=== PATIENT | male | born 1955 | race Caucasian/White ===

== ENCOUNTER 2020-03-23 05:29 | Day surgery (SDC) | payer OTHER ==
--- NOTE | 2020-03-18 13:04 | RADIOLOGY REPORT (SQ) ---
EXAM DESCRIPTION: CHEST PA/LATERAL IMAGES COMPLETED DATE/TIME: 03/18/2020 12:56 pm REASON FOR STUDY: PRE OP COMPARISON: None. EXAM PARAMETERS: NUMBER OF VIEWS: two views TECHNIQUE: Digital Frontal and Lateral radiographic views of the chest acquired. RADIATION DOSE: NA LIMITATIONS: none FINDINGS: LUNGS AND PLEURA: No opacities, masses or pneumothorax. No pleural effusion. MEDIASTINUM AND HILAR STRUCTURES: No masses or contour abnormalities. HEART AND VASCULAR STRUCTURES: Heart normal size. No evidence for failure. BONES: No acute findings. HARDWARE: None in the chest. OTHER: No other significant finding. IMPRESSION: NO SIGNIFICANT RADIOGRAPHIC FINDING IN THE CHEST. TECHNICAL DOCUMENTATION: JOB ID: [id number] 2010 [employer]- All Rights Reserved Reading location - IP/workstation name: [email or web address]
[2020-03-18 13:54] LABS: HEMATOCRIT 36.3 % (37.9-51.0); HEMOGLOBIN 12.7 g/dL (13.5-17.0); MEAN CORPUSCULAR HEMOGLOBIN 33.6 pg (27.0-33.4); MEAN CORPUSCULAR VOLUME 96 fl (80-97); PLATELET COUNT 197 10^3/uL (150-450); RED BLOOD COUNT 3.78 10^6/uL (4.35-5.55); RED CELL DISTRIBUTION WIDTH 12.4 % (11.5-14.0); WHITE BLOOD COUNT 8.4 10^3/uL (4.0-10.5)
[2020-03-18 14:01] LABS: APPEARANCE,URINE CLEAR; BILIRUBIN,URINE NEGATIVE (NEGATIVE); COLOR,URINE YELLOW; GLUCOSE, URINE NEGATIVE (NEGATIVE); KETONES,URINE NEGATIVE (NEGATIVE); LEUKOCYTE ESTERASE,URINE NEGATIVE (NEGATIVE); NITRITE,URINE NEGATIVE (NEGATIVE); PROTEIN,URINE NEGATIVE (NEGATIVE); URINE SPECIFIC GRAVITY 1.017; UROBILINOGEN,URINE NEGATIVE mg/dL (<2.0)
[2020-03-18 14:20] LABS: ANION GAP 7 (5-19); BLOOD UREA NITROGEN 17 mg/dL (7-20); CALCIUM 9.6 mg/dL (8.4-10.2); CARBON DIOXIDE 25 mmol/L (22-30); CHLORIDE 103 mmol/L (98-107); GLUCOSE 124 mg/dL (75-110)
--- NOTE | 2020-03-18 23:14 | EKG REPORT ---
SEVERITY:- NORMAL ECG - SINUS RHYTHM : Confirmed by: Minal Childress MD 18-Mar-2020 23:13:46
[~2020-03-23 05:29] MED LIST: CEFAZOLIN 2 GM/D5W RTU 2 GM/50 ML RTUPB IV ONE; CEFAZOLIN 2 GM/D5W RTU 2 GM/50 ML RTUPB IV PRN; LACTATED RINGERS 1000 ML IV PRN
[2020-03-23] MEDS ORDERED: PROPOFOL INJ 200 MG/20 ML VIAL IV ONE (07:11)
[2020-03-23] MEDS ORDERED: LIDOCAINE 2% INJ-PF (20 MG/ML) 10 ML AMPUL ONE (07:11)
[2020-03-23] MEDS ORDERED: FENTANYL CITRATE INJ/PF 100 MCG/2 ML AMPUL ONE (07:11)
[2020-03-23] MEDS ORDERED: MIDAZOLAM 2 MG/2 ML INJ ONE (07:11)
[2020-03-23] MEDS ORDERED: DEXAMETHASONE SOD PHOSPHATE INJ 4 MG/1 ML VIAL ONE (07:11)
[2020-03-23] MEDS ORDERED: ONDANSETRON HCL INJ/PF 4 MG/2 ML SDV ONE (07:11)
[2020-03-23] MEDS ORDERED: HYDROMORPHONE HCL INJ/PF 2 MG/ML AMPULE ONE (07:11)
[2020-03-23] MEDS ORDERED: BUPIVACAINE INJ/PF LIPOSOME/PF 266 MG/20 ML SDV ONE (07:28)
[2020-03-23] MEDS ORDERED: BACITRACIN INJ 50,000 UNIT VIAL ONE (07:28)
[2020-03-23] MEDS ORDERED: MINERAL OIL (STERILE) 10 ML VIAL ONE (07:28)
[2020-03-23] MEDS ORDERED: MEPERIDINE HCL/PF INJ 25 MG/1 ML DISP.SYRIN IV PRN (09:09)
[2020-03-23] MEDS ORDERED: DIPHENHYDRAMINE HCL 50 MG/ML VIAL IV PRN (09:09)
[2020-03-23] MEDS ORDERED: OXYCODONE-ACETAMINOPHEN 5-325 MG TABLET PO PRN ×2 (09:09)
[2020-03-23] MEDS ORDERED: MORPHINE SULFATE 10 MG/ML INJ IV PRN (09:09)
[2020-03-23] MEDS ORDERED: PROMETHAZINE HCL INJ 25 MG/1 ML VIAL IV PRN ×2 (09:09)
[2020-03-23] MEDS ORDERED: FENTANYL CITRATE INJ/PF 100 MCG/2 ML AMPUL IV PRN ×3 (09:09)
[2020-03-23] MEDS ORDERED: BUPIVACAINE HCL 0.5 % INJ/PF 30 ML SDV ONE (09:24)
[2020-03-23] MEDS ORDERED: GLYCOPYRROLATE 1 MG/5 ML VIAL ONE (09:51)
[2020-03-23] MEDS ORDERED: NEOSTIGMINE METHYLSULFATE 10 MG/10 ML VIAL ONE (09:51)
--- NOTE | 2020-03-23 10:11 | Operative Report ---
Operative Report DATE OF SURGERY: 03/23/20 PREOPERATIVE DIAGNOSIS: L4-5 severe stenosis. L4-5 herniated nucleus pulposus right and left side. L4-5 radiculitis. L4-5 severe stenosis with neurogenic claudication and back pain POSTOPERATIVE DIAGNOSIS: L4-5 severe stenosis. L4-5 herniated nucleus pulposus right and left side. L4-5 radiculitis. L4-5 severe stenosis with neurogenic claudication and back pain. S/P L4 partial laminectomy and L4-5 bilateral microdiscectomy OPERATION: For partial laminectomy and L4-5 bilateral microdiscectomy SURGEON: DEBBY GRIFFIN 1ST MAR[employer]AGE [employer] FAMILY THERAPIST: PATRICK MENDEZ ANESTHESIA: GA COMPLICATIONS: None PROCEDURE: Patient is brought into the room and placed under general anesthesia. After appropriate surgical timeout the patient was placed in the prone position on the radiolucent table with Alexys frame attachment. Patient received 2 g of Ancef within 1 hour of cut time. Under C arm fluoroscopy in the lateral position the skin is marked using a metal marker. After marking the midline and after completion of prepping and draping midline incision is carried out using sharp dissection. Electrocautery was used to maintain hemostasis. Dissection is carried out onto the lamina of L4-5 and Denis was placed at the posterior interspace of L4-5 upon verification of the posterior interspace position using lateral C-arm fluoroscopy the spinous process of L4 resected. The microscope was brought in and under the microscope and through the assistance of evi Corona physician assistant case manager to the microscope partial laminectomies performed using the bur and Kerrisons and ligamentum flavum was resected. The dura is retracted medially and the right and the left lateral recesses decompressed and a partial facetectomies performed. The noted disc protrusion is then resected under the microscope many small and large degenerative pieces of disc were resected. Then the dura is found to rest more ventrally and no pressure is noted on the exiting nerve root. A Valsalva maneuver was performed by the anesthesia team. Noting no cerebrospinal fluid leakage or epidural bleeders. The wound is irrigated with a liter of bacitracin irrigation and the fascia is then reapproximated with 0 Vicryl the subcu with 2- 0 Vicryl. The deep and superficial soft tissues were infiltrated with 1.3% Exparel 20 cc mixed with 20 cc of Marcaine plain. The subcu was reapproximated with 3-0 Monocryl as a running stitch with the edges tied outside of the skin and the wound is dressed with benzoin Steri-Strips 4 x 4 and tape. Patient was then brought to the supine position extubated brought to recovery room. Patient tolerated post procedure well. Please note this procedure could not have been done without the assistance of evi Corona physician assistant case manager working under the microscope carry out the discectomy and retracting the dura.
[2020-03-23] MEDS ORDERED: METHOCARBAMOL INJ/PF 1000 MG/10 ML SDV ONE (10:17)
[2020-03-23] MEDS ORDERED: OXYCODONE-ACETAMINOPHEN 5-325 MG TABLET ONE (11:01)
--- NOTE | 2020-03-23 11:45 | RADIOLOGY REPORT (SQ) ---
EXAM DESCRIPTION: SPINE SINGLE VIEW; NO CHG FLUORO IMAGES COMPLETED DATE/TIME: 03/23/2020 10:29 am REASON FOR STUDY: L4-5 LAMINECTOMY ASSISTED WITH FLUORO IN OR M48.062 SPINAL STENOSIS, LUMBAR REGIO N WITH NEUROGENIC CANDIDO M48.061 SPINAL STENOSIS, LUMBAR REGION WITHOUT NEUROGENIC CL M54.16 RADICUL OPATHY, LUMBAR REGION COMPARISON: None. FLUOROSCOPY TIME: 0.1 minutes 1 images saved to PACS. TECHNIQUE: Intra-operative images acquired during surgical procedure to evaluate progress. NUMBER OF IMAGES: 1 LIMITATIONS: None. FINDINGS: A single intraoperative fluoroscopic spot image was obtained and is submitted for administ rative purposes only. Please refer to the operative report for full details regarding this procedure . IMPRESSION: IMAGE(S) OBTAINED DURING PROCEDURE. COMMENT: Quality ID [id number]: Final reports for procedures using fluoroscopy that document radiation exp osure indices, or exposure time and number of fluorographic images (if radiation exposure indices are not available) Please consult full operative report of the attending physician for description of the procedure. TECHNICAL DOCUMENTATION: JOB ID: [id number] 2010 [employer]- All Rights Reserved Reading location - IP/workstation name: [email or web address]
--- NOTE | 2020-03-23 11:45 | RADIOLOGY REPORT (SQ) ---
EXAM DESCRIPTION: SPINE SINGLE VIEW; NO CHG FLUORO IMAGES COMPLETED DATE/TIME: 03/23/2020 10:29 am REASON FOR STUDY: L4-5 LAMINECTOMY ASSISTED WITH FLUORO IN OR M48.062 SPINAL STENOSIS, LUMBAR REGIO N WITH NEUROGENIC CANDIDO M48.061 SPINAL STENOSIS, LUMBAR REGION WITHOUT NEUROGENIC CL M54.16 RADICUL OPATHY, LUMBAR REGION COMPARISON: None. FLUOROSCOPY TIME: 0.1 minutes 1 images saved to PACS. TECHNIQUE: Intra-operative images acquired during surgical procedure to evaluate progress. NUMBER OF IMAGES: 1 LIMITATIONS: None. FINDINGS: A single intraoperative fluoroscopic spot image was obtained and is submitted for administ rative purposes only. Please refer to the operative report for full details regarding this procedure . IMPRESSION: IMAGE(S) OBTAINED DURING PROCEDURE. COMMENT: Quality ID [id number]: Final reports for procedures using fluoroscopy that document radiation exp osure indices, or exposure time and number of fluorographic images (if radiation exposure indices are not available) Please consult full operative report of the attending physician for description of the procedure. TECHNICAL DOCUMENTATION: JOB ID: [id number] 2010 [employer]- All Rights Reserved Reading location - IP/workstation name: [email or web address]
[2020-03-23 12:42] VITALS: BP 147/86
--- NOTE | 2020-03-29 13:34 | PDOC DISCHARGE SUMMARY ---
Impression - Admit/DC Date/PCP Admission Date/Primary Care Provider: 03/23/20 ZENAIDA BERMUDEZ MD Discharge Date: 03/23/20 - Discharge Diagnosis (1) S/P laminectomy Is this a current diagnosis for this admission?: Yes (2) S/P discectomy Is this a current diagnosis for this admission?: Yes (3) Lumbar radiculopathy Is this a current diagnosis for this admission?: Yes (4) Lumbar stenosis Is this a current diagnosis for this admission?: Yes - Assessment Summary: Pt had L4-5 bilateral microdiscectomy and L4 partial laminectomy carried out as planned without complications. Pt had an uneventful recovery in PACU and was taken to day surgery. Pt's pain was well controlled with oral pain medication and was able to tolerate PO intake. Pt able to void s/p removal of his introp catheter. Discharge instructions and spinal percautions were reviewed with pt. Pt. displayed understanding. All questions and concerns answered to pt satisfaction. Pt discharged to home in good condition as he had displayed ability to care for himself and requested to go home. Discharged POD #0 - Additional Information Resuscitation Status: Full Code Discharge Diet: As Tolerated Discharge Activity: Activity As Tolerated, No Lifting/Push/Pulling Referrals: DEBBY GRIFFIN MD [ASSOCIATE] - 04/06/20 (Follow up as scheduled) Home Medications: Alfuzosin HCl [Uroxatral] 10 mg PO DAILY 03/18/20 Atorvastatin Calcium [Lipitor 10 mg Tablet] 10 mg PO QHS 03/18/20 Celecoxib [Celebrex 200 mg Capsule] 200 mg PO Q12 03/18/20 Glucos Sul 2Kcl/MSM/Chond/C/Mn [Glucosamine Chondroitin Cap] 1 each PO DAILY 03/18/20 Metformin HCl [Glucophage 500 mg Tablet] 500 mg PO BID 03/18/20 Multivitamin [Multivitamins] 1 each PO DAILY 03/18/20 Pregabalin 75 mg PO BID 03/18/20 Sitagliptin Phosphate [Januvia 50 mg Tablet] 100 mg PO DAILY 03/18/20 Telmisartan 20 mg PO DAILY 03/18/20 Ubidecarenone [Coq10] 200 mg PO DAILY 03/18/20 History of Present Illiness History of Present Illness: RAMIRO DELAROSA is a 64 year old male Physical Exam Vital Signs: Temp Pulse Resp BP Pulse Ox 36.3 C 70 18 147/86 H 98 03/23/20 12:00 03/23/20 12:00 03/23/20 12:00 03/23/20 12:00 03/23/20 12:00 Results Laboratory Results: WBC 8.4 10^3/uL (4.0-10.5) 03/18/20 12:40 RBC 3.78 10^6/uL (4.35-5.55) L 03/18/20 12:40 Hgb 12.7 g/dL (13.5-17.0) L 03/18/20 12:40 Hct 36.3 % (37.9-51.0) L 03/18/20 12:40 MCV 96 fl (80-97) 03/18/20 12:40 MCH 33.6 pg (27.0-33.4) H 03/18/20 12:40 MCHC 35.0 g/dL (32.0-36.0) 03/18/20 12:40 RDW 12.4 % (11.5-14.0) 03/18/20 12:40 Plt Count 197 10^3/uL (150-450) 03/18/20 12:40 Sodium 134.6 mmol/L (137-145) L 03/18/20 12:40 Potassium 5.0 mmol/L (3.6-5.0) 03/18/20 12:40 Chloride 103 mmol/L (98-107) 03/18/20 12:40 Carbon Dioxide 25 mmol/L (22-30) 03/18/20 12:40 Anion Gap 7 (5-19) 03/18/20 12:40 BUN 17 mg/dL (7-20) 03/18/20 12:40 Creatinine 0.78 mg/dL (0.52-1.25) 03/18/20 12:40 Est GFR ( Amer) > 60 (>60) 03/18/20 12:40 Est GFR (MDRD) Non-Af > 60 (>60) 03/18/20 12:40 Glucose 124 mg/dL (75-110) H 03/18/20 12:40 POC Glucose 154 mg/dL (70-110) H 03/23/20 05:55 Hemoglobin A1c % 6.2 % (4.7-6.0) H 03/18/20 12:40 Calcium 9.6 mg/dL (8.4-10.2) 03/18/20 12:40 Urine Color YELLOW 03/18/20 11:05 Urine Appearance CLEAR 03/18/20 11:05 Urine pH 5.0 (5.0-9.0) 03/18/20 11:05 Ur Specific Glenn 1.017 03/18/20 11:05 Urine Protein NEGATIVE mg/dL (NEGATIVE) 03/18/20 11:05 Urine Glucose (UA) NEGATIVE mg/dL (NEGATIVE) 03/18/20 11:05 Urine Ketones NEGATIVE mg/dL (NEGATIVE) 03/18/20 11:05 Urine Blood NEGATIVE (NEGATIVE) 03/18/20 11:05 Urine Nitrite NEGATIVE (NEGATIVE) 03/18/20 11:05 Urine Bilirubin NEGATIVE (NEGATIVE) 03/18/20 11:05 Urine Urobilinogen NEGATIVE mg/dL (<2.0) 03/18/20 11:05 Ur Leukocyte Esterase NEGATIVE (NEGATIVE) 03/18/20 11:05 Urine WBC (Auto) 1 /HPF 03/18/20 11:05 Urine RBC (Auto) 1 /HPF 03/18/20 11:05 Urine Mucus (Auto) RARE /LPF 03/18/20 11:05 Urine Ascorbic Acid 40 (NEGATIVE) H 03/18/20 11:05 COVID-19 Source NASOPHARYNGEAL 03/18/20 12:45 COVID-19 (MARCIO) NOT DETECTED 03/18/20 12:45 Impressions: Chest X-Ray 03/18/20 00:00 IMPRESSION: NO SIGNIFICANT RADIOGRAPHIC FINDING IN THE CHEST. Fluoroscopy 03/23/20 00:00 IMPRESSION: IMAGE(S) OBTAINED DURING PROCEDURE. Spine X-Ray 03/23/20 00:00 IMPRESSION: IMAGE(S) OBTAINED DURING PROCEDURE. Stroke Is this a Stroke Patient?: No Stroke Pt being discharged on Anti-thrombolytic therapy?: No Reason(s) for not prescribing Anti-thrombolytic therapy:: Contraindicated - post-op. risk of bleeding Stroke Pt being discharged on Anti-coagulation therapy?: No Reason(s) for not prescribing Anti-coagulation therapy:: Contraindicated - SCD's Stroke Pt being discharged on Statins?: Yes Acute Heart Failure - Is this a Heart Failure Patient?: No
== END 2020-03-23 12:00 | disposition home or self-care (01) ==
LOC: OROUT 05:29
PROVIDERS: ATTEND Orthopaedic Surgery
DX: M48.062 Spinal stenosis, lumbar region with neurogenic claudication (principal); M54.16 Radiculopathy, lumbar region; M51.36 Other intervertebral disc degeneration, lumbar region; M53.3 Sacrococcygeal disorders, not elsewhere classified; Z79.899 Other long term (current) drug therapy; Z79.84 Long term (current) use of oral hypoglycemic drugs; E11.9 Type 2 diabetes mellitus without complications; E78.5 Hyperlipidemia, unspecified; F17.210 Nicotine dependence, cigarettes, uncomplicated; I10 Essential (primary) hypertension; K21.9 Gastro-esophageal reflux disease without esophagitis; Z79.82 Long term (current) use of aspirin; Z03.818 Encounter for observation for suspected exposure to other biological agents ruled out
CPT/HCPCS: 63030; 93005; 36415; 82962; 85027; 87635; 80048; 81001; 87070; 83036; 71046; 72020; 93010; 00630; J2250; J3490 ×4; J1100; J3010; J2800; J2710; J1170; J2405; J2704; J0690; C9290; C9803; 630